=== PATIENT | male | born 1975 | race Caucasian/White ===

== ENCOUNTER 2021-10-03 14:24 | Outpatient (REF) | payer OTHER, SELFPAY ==
--- NOTE | ~2021-10-03 | XR_ITS ---
EXAMINATION: XR CERVICAL SPINE CLINICAL INFORMATION: Neck pain. COMPARISON: None TECHNIQUE: Frontal, odontoid, bilateral oblique and lateral views are obtained. FINDINGS: Vertebral body heights and alignment are normal. There is moderate disc space narrowing at C3-C4 through C5-C6, with anterior spondylosis. The remaining disc spaces are well-maintained. No acute fracture or spondylolisthesis is seen. The posterior elements are intact. There is mild right neural foraminal narrowing at C4-C5, and bilateral foraminal narrowing is seen at C5-C6. There is no prevertebral soft tissue swelling. The dens and C7-T1 interface are normal. XR/XR cervical spine 4V IMPRESSION: 1. At C3-C4 through C5-C6, there is moderate degenerative disc disease, with spondylosis. 2. There is mild right neural foraminal narrowing at C4-C5, and bilateral foraminal narrowing is seen at C5-C6.
== END 2021-10-03 14:25 | disposition home or self-care (01) ==
LOC: HO.XRAY 14:24
PROVIDERS: PCP Internal Medicine; Visit Provider Psychiatry & Neurology Neurology
DX: M54.2 Cervicalgia (principal)
CPT/HCPCS: 72050

== ENCOUNTER → 2023-01-15 08:50 | Outpatient (BNVA) | payer OTHER, SELFPAY | PROVIDERS: PCP Internal Medicine; Visit Provider Internal Medicine | DX: S60.211A Contusion of right wrist, initial encounter (principal); S80.01XA Contusion of right knee, initial encounter; W13.2XXA Fall from, out of or through roof, initial encounter | CPT/HCPCS: 99203 ==

== ENCOUNTER → 2023-01-17 08:30 | Outpatient (BNVA) | payer OTHER, SELFPAY | PROVIDERS: PCP Internal Medicine; Visit Provider Internal Medicine | DX: S80.01XA Contusion of right knee, initial encounter (principal); S60.211A Contusion of right wrist, initial encounter; S00.93XA Contusion of unspecified part of head, initial encounter; W13.2XXA Fall from, out of or through roof, initial encounter | CPT/HCPCS: 99213 ==

== ENCOUNTER → 2023-01-24 09:19 | Outpatient (BNVA) | payer OTHER, SELFPAY | PROVIDERS: PCP Internal Medicine; Visit Provider Internal Medicine | DX: S60.211A Contusion of right wrist, initial encounter (principal); S80.01XA Contusion of right knee, initial encounter; W13.2XXA Fall from, out of or through roof, initial encounter | CPT/HCPCS: 99213 ==

== ENCOUNTER → 2023-02-07 08:17 | Outpatient (BNVA) | payer OTHER, SELFPAY | PROVIDERS: PCP Internal Medicine; Visit Provider Internal Medicine | DX: M23.91 Unspecified internal derangement of right knee (principal); M77.8 Other enthesopathies, not elsewhere classified | CPT/HCPCS: 99214 ==

== ENCOUNTER → 2023-03-05 09:32 | Outpatient (BNVA) | payer OTHER, SELFPAY | PROVIDERS: PCP Internal Medicine; Visit Provider Internal Medicine | DX: M23.91 Unspecified internal derangement of right knee (principal) | CPT/HCPCS: 99213 ==

== ENCOUNTER 2023-03-09 17:55 | Outpatient (REF) | payer OTHER, BC, SELFPAY ==
--- NOTE | ~2023-03-09 | MR_ITS ---
EXAMINATION: MR KNEE WITHOUT CONTRAST, RIGHT CLINICAL INFORMATION: Right knee pain and swelling following a fall. COMPARISON: Right knee radiographs dated 01/15/2023. TECHNIQUE: MRI of the knee without contrast was performed using routine sequences on a high-field scanner. FINDINGS: MENISCI: Medial Meniscus: Intact. Lateral Meniscus: Intact. LIGAMENTS: Cruciate: Attenuation of the anterior cruciate ligament with diffuse increased T2 signal and associated cystic change measuring up to 1.5 cm in greatest dimension. Findings likely represent accommodation a chronic partial tearing and mucoid degeneration. No edema to suggest acute ligament tear. Intact posterior cruciate ligament. Collateral: Intact EXTENSOR MECHANISM: Distal quadriceps tendinosis with medial-sided linear fluid signal extending through the tendon which could represent longitudinal partial tearing. No transverse tendon tear or tendon retraction. Mild adjacent soft tissue edema. Intact patellar tendon. Normal patellofemoral alignment. ARTICULAR CARTILAGE/BONE: Patellofemoral Compartment: Patellar median ridge and lateral patellar facet full-thickness articular cartilage fissuring with underlying subchondral cystic change. More subtle fissuring at the medial patellar facet with minimal subchondral cystic change. Tiny marginal osteophytes. Medial Compartment: Intact articular cartilage. Lateral Compartment: Intact articular cartilage. JOINT FLUID AND BURSAE: Trace joint effusion and trace Gould's cyst. MR/MR knee RT wo con IMPRESSION: 1. 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 No transverse tendon tear or tendon retraction. Mild adjacent soft tissue edema. 2. Mild patellofemoral osteoarthritis. Trace joint effusion and trace Gould's cyst. 3. 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 No evidence of acute ligament injury. 4. No meniscal tear.
== END 2023-03-09 17:56 | disposition home or self-care (01) ==
LOC: HO.MRI 17:55
PROVIDERS: PCP Internal Medicine; Visit Provider Internal Medicine
DX: M25.561 Pain in right knee (principal)
CPT/HCPCS: 73721

== ENCOUNTER 2023-03-12 09:00 | Outpatient (RCR) | payer OTHER, SELFPAY | END 2023-04-20 13:01 | disposition home or self-care (01) | LOC: HO.OT 09:00 | PROVIDERS: PCP Internal Medicine; Visit Provider Internal Medicine | DX: M25.561 Pain in right knee (principal); Z91.81 History of falling | CPT/HCPCS: 97110; 97165 ==

== ENCOUNTER 2023-03-12 15:00 | Outpatient (RCR) | payer OTHER, BC, SELFPAY ==
--- NOTE | 2023-04-25 10:45 | MHC.PT.DC ---
[facility] [place] [facility] [place] Office [place] Office [address] Sisi Quintana [address] [phone] F: [phone] F: [phone] F: [phone] F: [phone] Physical Therapy Discharge Report Diagnosis: RIGHT KNEE PAIN S/P FALL (KP) Date of Surgery: Date of Evaluation: 03/06/23 Date of Discharge: 04/25/23 Treatments to Date: 2 Cancellations to Date: 0 No Shows to Date: 0 Discharge Status: Patient Elected to Stop Visit Non-compliance Discharge Summary: CANCELLED THREE PT VISITS AND NO SHOWED FOR 3 VISITS INCLUDING LAST SCHEDULED VISIT. UNABLE TO REACH Pt BY PHONE AND HE IS DCed FOR NON-COMPLIANCE. Electronically signed by: CARLTON MOLINA PT DPT Please sign and return to therapist. Thank you for your referral.
== END 2023-04-25 10:45 | disposition home or self-care (01) ==
LOC: HO.PT 15:00
PROVIDERS: PCP Internal Medicine; Visit Provider Internal Medicine
DX: M25.561 Pain in right knee (principal); Z91.81 History of falling
CPT/HCPCS: 97110; 97161; 97530; 97535

== ENCOUNTER → 2023-03-16 07:51 | Outpatient (BNVA) | payer OTHER, SELFPAY | PROVIDERS: PCP Internal Medicine; Visit Provider Internal Medicine | DX: S76.111D Strain of right quadriceps muscle, fascia and tendon, subsequent encounter (principal); W13.2XXD Fall from, out of or through roof, subsequent encounter | CPT/HCPCS: 99213 ==